=== PATIENT | male | born 1945 | race Caucasian/White ===

== ENCOUNTER → 2017-05-03 | Outpatient (CLI) | payer OTHER ==
[~2017-05-03] MED LIST: REGADENOSON 0.4 MG/5 ML DISP.SYRIN. IV ONE
--- NOTE | 2017-05-03 12:53 | PCVCIMAG ---
APPROVED REPORT Exam: Nuclear Stress Test Indication: Chest Pain, CAD Patient Location: Out-Patient Stress Nurse: Andie Martinez RN, Brenna Frausto RN [place] Tech:Edvin Vizcarra NMTCB Ht: 5 ft 9 in Wt: 165 lbs BSA: 1.90 m2 HR: 56 bpm BP: 163/84 mmHg BMI: 24.3 Rhythm: SB Medical History Medical History: Age, Hyperlipidemia, HTN, CAD, Former Smoker, Medications: Aspirin, toprol xl (held 24h), simvastatin, brilinta Allergies: NKDA Previous Cardiac Procedures: PCI, 12/30 Stent Pretest Chest Pain Characteristics: No chest pain NM EXAM: Myocardial Perfusion REST/STRESS Imaging Protocol: Rest Tc-99m/Stress Tc-99m 1 day Resting Data Rest SPECT myocardial perfusion imaging was performed in supine position 45 minutes following the intravenous injection of 8.9 mCi of Tc-99m Sestamibi. Time of rest injection: 814 Date: 05/03/2017 Pharmacologic Stress Pharmacologic stress test was performed by injecting Regadenoson 0.4 mg IV push followed by the intravenous injection of 27.4 mCi of Tc-99m Sestamibi. Time of stress injection: 944 Date: 05/03/2017 The images were gated to evaluate regional wall motion and calculate left ventricular ejection fraction. Study Data Post stress, the left ventricular ejection was 64%.. SSS: 13 SRS: 10 SDS: 3 TID = 0.82. Perfusion There is a medium area of severely reduced uptake in the basal and mid segment of the inferolateral wall which is seen on the stress images as well as the resting images. This area is hypokinetic and is most consistent with myocardial scar. Wall Motion There is a medium area of hypokinesis in the basal and mid segment of the inferolateral wall which is seen on the stress images as well as the resting images. Nuclear Conclusion 1. LOW RISK STUDY Interpreted by: Nicola Mcginnis MD Electronically Approved: 05/03/2017 12:52:22 Stress Test Details Stress Test: Pharmacologic stress was paired with low level exercise. Reason for pharmacologic stress test: Balance issues. HR Resting HR: 56 bpmMax Heart Rate (APMHR): 150 bpm Max HR Achieved: 100 bpmTarget HR (85% APMHR): 127 bpm % of APMHR: 66 Recovery HR: 56 bpm BP Resting BP: 163/84 mmHg Max BP: 168/83 mmHg ECG Resting ECG: Sinus Bradycardia Stress ECG: Sinus Rhythm Recovery ECG: Sinus Rhythm Clinical Reason for Termination: Completed protocol Stress Symptoms: Dyspnea, Leg Fatigue, Lightheaded, Dizzy Stress ECG Conclusion 1. ADEQUATE RESPONSE TO IV LEXISCAN 2. INADEQUATE HEART RATE FOR ECG DIAGNOSIS <Conclusion> 1. ADEQUATE RESPONSE TO IV LEXISCAN 2. INADEQUATE HEART RATE FOR ECG DIAGNOSIS
== END | disposition home or self-care (01) ==
LOC: PCVCIMAG 08:13
PROVIDERS: ATTEND Internal Medicine
DX: I25.10 Atherosclerotic heart disease of native coronary artery without angina pectoris (principal); K52.9 Noninfective gastroenteritis and colitis, unspecified; I10 Essential (primary) hypertension; R94.31 Abnormal electrocardiogram [ECG] [EKG]; E78.5 Hyperlipidemia, unspecified; Z87.891 Personal history of nicotine dependence; Z79.82 Long term (current) use of aspirin; Z79.899 Other long term (current) drug therapy
CPT/HCPCS: 78452; 93017; A9500; J2785

== ENCOUNTER → 2018-09-12 | Outpatient (CLI) | payer OTHER | END | disposition home or self-care (01) | LOC: PCVCCLINIC 15:26 | PROVIDERS: ATTEND Internal Medicine | DX: I25.10 Atherosclerotic heart disease of native coronary artery without angina pectoris (principal); R06.00 Dyspnea, unspecified; R14.0 Abdominal distension (gaseous); I10 Essential (primary) hypertension; E78.5 Hyperlipidemia, unspecified; Z79.82 Long term (current) use of aspirin; Z87.891 Personal history of nicotine dependence | CPT/HCPCS: 36415; 80061; 93005; G0463 ==

== ENCOUNTER → 2018-09-19 | Outpatient (CLI) | payer OTHER ==
--- NOTE | 2018-09-19 15:59 | PCVCIMAG ---
APPROVED REPORT Study performed: 09/19/2018 08:15:31 EXAM: Comprehensive 2D, Doppler, and color-flow Echocardiogram Patient Location: Echo lab Status: routine BSA: 1.94 HR: 63 bpmBP: 140/80 mmHg Rhythm: NSR Other Information Study Quality: Adequate Risk Factors: Cardiac Risk Factors: HTN, Hyperlipidemia Indications CAD Hypertension/HDD Stent 2D Dimensions IVSd: 14.30 (7-11mm)LVOT Diam: 19.04 (18-24mm) LVDd: 38.31 mm PWd: 13.43 (7-11mm)Ascending Ao: 40.81 (22-36mm) LVDs: 35.37 (25-40mm) Left Atrium: 30.73 (27-40mm) Aortic Root: 27.72 mm LV Single Plane 4CH: 52.82 % LV Single Plane 2CH: 56.10 % Biplane EF: 56.8 % Volumes Left Atrial Volume (Systole) Single Plane 4CH: 37.61 mLSingle Plane 2CH: 49.27 mL LA ESV Index: 22.00 mL/m2 Aortic Valve AoV Peak Edgardo.: 1.46 m/s AO Peak Gr.: 8.49 mmHg Mitral Valve E/A Ratio: 0.7 MV Decel. Time: 221.71 ms MV E Max Edgardo.: 0.62 m/s MV A Edgardo.: 0.94 m/s IVRT: 176.47 ms TDI E/Lateral E': 10.33E/Medial E': 10.33 Medial E' Edgardo.: 0.06 m/s Lateral E' Edgardo.: 0.06 m/s Pulmonary Vein P Vein S: 0.54 m/sP Vein A: 0.32 m/s P Vein D: 0.26 m/sP Vein A Dur.: 93.4 msec P Vein S/D Ratio: 2.08 Left Ventricle The left ventricle is normal size. Inferior hypokinesis. Mild concentric left ventricular hypertrophy. Left ventricular systolic function is normal. The left ventricular ejection fraction is within the normal range. LVEF is 55-60%. The left ventricular diastolic function is normal. Right Ventricle The right ventricle is normal size. The right ventricular systolic function is normal. Atria The left atrium size is normal. The right atrium size is normal. Aortic Valve The aortic valve is normal in structure. Trace aortic regurgitation. There is no aortic valvular stenosis. Mitral Valve The mitral valve is normal in structure. Trace mitral regurgitation. No evidence of mitral valve stenosis. Tricuspid Valve The tricuspid valve is normal in structure. There is no tricuspid valve regurgitation noted. Pulmonic Valve The pulmonary valve is normal in structure. There is no pulmonic valvular regurgitation. Great Vessels The aortic root is normal in size. IVC is normal in size and collapses >50% with inspiration. Pericardium There is no pericardial effusion. <Conclusion> The left ventricle is normal size. LVEF is 55-60%. The aortic valve is normal in structure. Trace aortic regurgitation. The mitral valve is normal in structure. Trace mitral regurgitation. The tricuspid valve is normal in structure. The pulmonary valve is normal in structure. There is no pericardial effusion.
== END | disposition home or self-care (01) ==
LOC: PCVCIMAG 12:12
PROVIDERS: ATTEND Internal Medicine
DX: I25.10 Atherosclerotic heart disease of native coronary artery without angina pectoris (principal); I10 Essential (primary) hypertension; H81.09 Meniere's disease, unspecified ear; E78.5 Hyperlipidemia, unspecified
CPT/HCPCS: 93306

== ENCOUNTER → 2019-03-01 | Outpatient (CLI) | payer OTHER | END | disposition home or self-care (01) | LOC: PCVCCLINIC 10:30 | PROVIDERS: ATTEND Internal Medicine | DX: I25.10 Atherosclerotic heart disease of native coronary artery without angina pectoris (principal); R06.09 Other forms of dyspnea; E78.5 Hyperlipidemia, unspecified; I10 Essential (primary) hypertension; R14.0 Abdominal distension (gaseous); Z88.0 Allergy status to penicillin | CPT/HCPCS: 36415; 80061; 93005; G0463 ==